=== PATIENT | female | born 1965 | race Two or more races ===

== ENCOUNTER 2017-06-25 14:30 | Outpatient (CLI) | payer OTHER ==
[~2017-06-25 14:30] MED LIST: AMLODIPINE BES2.5 MG PO; CELEBREX100 MG PO; LABETALOL HCL200 MG PO
== END 2017-06-25 16:50 | disposition home or self-care (01) ==
LOC: RAD 501 14:30
DX: M54.6 Pain in thoracic spine (principal); M54.5 Low back pain

== ENCOUNTER 2018-03-19 10:45 | Outpatient (CLI) | payer OTHER | END 2018-03-19 11:44 | disposition home or self-care (01) | LOC: MAMO-SONO 10:45 | DX: N64.4 Mastodynia (principal); Z12.31 Encounter for screening mammogram for malignant neoplasm of breast ==

== ENCOUNTER 2018-08-05 12:36 | Outpatient (CLI) | payer OTHER | END 2018-08-05 13:17 | disposition home or self-care (01) | LOC: RAD 12:36 | DX: M54.5 Low back pain (principal); M54.16 Radiculopathy, lumbar region ==

== ENCOUNTER 2020-01-28 13:46 | Outpatient (CLI) | payer OTHER | END 2020-01-28 14:00 | disposition home or self-care (01) | LOC: MAMO-SONO 13:46 | PROVIDERS: ATTEND Obstetrics & Gynecology | DX: Z12.31 Encounter for screening mammogram for malignant neoplasm of breast (principal); N64.59 Other signs and symptoms in breast ==

== ENCOUNTER 2020-07-05 11:42 | Outpatient (CLI) | payer OTHER | END 2020-07-05 13:43 | disposition home or self-care (01) | LOC: SONOGRAMA 11:42 | PROVIDERS: ATTEND Obstetrics & Gynecology | DX: N13.8 Other obstructive and reflux uropathy (principal) ==

== ENCOUNTER 2020-07-06 11:26 | Outpatient (CLI) | payer OTHER | END 2020-07-06 15:19 | disposition home or self-care (01) | LOC: SONOGRAMA 11:26 | PROVIDERS: ATTEND Obstetrics & Gynecology | DX: D25.9 Leiomyoma of uterus, unspecified (principal) ==

== ENCOUNTER 2020-12-15 13:20 | Outpatient (CLI) | payer OTHER | END 2020-12-15 13:21 | disposition home or self-care (01) | LOC: NUCLEAR 13:20 | PROVIDERS: ATTEND Physical Medicine & Rehabilitation | DX: M81.0 Age-related osteoporosis without current pathological fracture (principal); Z79.83 Long term (current) use of bisphosphonates ==

== ENCOUNTER 2022-03-27 08:21 | Outpatient (CLI) | payer OTHER | END 2022-03-27 08:40 | disposition home or self-care (01) | LOC: SONOGRAMA 08:21 | DX: K76.0 Fatty (change of) liver, not elsewhere classified (principal); E78.00 Pure hypercholesterolemia, unspecified ==